=== PATIENT | female | born 1965 | race Caucasian/White ===

== ENCOUNTER 2020-11-13 21:41 | Emergency (ER) | payer BC ==
[~2020-11-13] VITALS: Ht 165.1 cm; Wt 97.5 kg
[2020-11-13 21:50] VITALS: BP 157/80
[2020-11-13] MEDS ORDERED: MAGNESIUM HYDROXIDE 2,400 MG/30 ML ORAL.SUSP. PO ONE (22:00)
[2020-11-13] MEDS ORDERED: ALBUTEROL SULFATE 8GM INHALER. INH ONE (22:00)
[2020-11-13] MEDS ORDERED: methylPREDNISolone SOD SUCC PF 125 MG/2 ML VIAL. IV ONE (22:00)
[2020-11-13] MEDS ORDERED: FAMOTIDINE 20 MG/2 ML VIAL IVP ONE (22:00)
--- NOTE | 2020-11-13 23:01 | PHYS DOC ---
Past History Past Medical History: Asthma, GERD Past Surgical History: Tonsillectomy, Tubal ligation Alcohol Use: Occasionally General Adult EDM: Chief Complaint: ALLERGIC REACTION HPI: HPI: ".. We are visiting from [place]-- my grandson is in unit here... and I ate a Crab cake.. and started itching everywhere... I am red from top to bottom...I am like a boiled lobster..." Patient is a 55 year old female who presents with above hx and apparent allergic reaction to crab cake ingestion. Patient reports she is never eaten crab cakes before. Pt.states symptoms started almost immediately after eating a crab cake. Patient entire body is red. Patient states initially was very itchy however he did take some Benadryl which helped with the symptoms. Patient denies any other new meds, lotions, or exposures. No specific ill contacts. Recent travel from [place]. No history of fever or chills. Does have past medical history of asthma, GERD . Patient is up-to-date with vaccinations. Patient is accompanied with her . Review of Systems: Review of Systems: Constitutional: Denies fever or chills Eyes: Denies change in visual acuity HENT: Denies nasal congestion or sore throat Respiratory: Denies cough or shortness of breath Cardiovascular: Denies chest pain or edema GI: Denies abdominal pain, nausea, vomiting, bloody stools or diarrhea : Denies dysuria Musculoskeletal: Denies back pain or joint pain Integument: Complains of diffuse itchy rash over her entire body Neurologic: Denies headache, focal weakness or sensory changes Endocrine: Denies polyuria or polydipsia Lymphatic: Denies swollen glands Psychiatric: Denies depression or anxiety Family History: Family History: Noncontributory to presentation Current Medications: Current Meds: Current Medications Medications (Trade) Dose Ordered Sig/Peewee Start Time Stop Time Status Last Admin Dose Admin Albuterol Sulfate (Ventolin Hfa Inhaler) 2 puff 1X ONCE 11/13/20 22:00 11/13/20 22:07 DC 11/13/20 22:25 2 PUFF Famotidine (Pepcid Vial) 20 mg 1X ONCE 11/13/20 22:00 11/13/20 22:07 DC 11/13/20 22:19 20 MG Magnesium Hydroxide (Milk Of Magnesia) 2,400 mg 1X ONCE 11/13/20 22:00 11/13/20 22:07 DC 11/13/20 22:23 2,400 MG Methylprednisolone Sodium Succinate (SOLU-Medrol 125MG VIAL) 125 mg 1X ONCE 11/13/20 22:00 11/13/20 22:07 DC 11/13/20 22:21 125 MG Allergies: Allergies: Allergies Coded Allergies Type Severity Reaction Last Updated Verified No Known Drug Allergies 11/13/20 No Physical Exam: PE: Constitutional: in acute distress, non-toxic appearance. [] HENT: Normocephalic, atraumatic, bilateral external ears normal, oropharynx moist, no oral exudates, nose normal. [] Eyes: PERRLA, EOMI, conjunctiva normal, no discharge. [] Neck: Normal range of motion, no tenderness, supple, no stridor. [] Cardiovascular: Tachycardia heart rate regular rhythm, no murmur [] Lungs & Thorax: Bilateral breath sounds equal with few scattered wheezes on auscultation [] Abdomen: Bowel sounds hyperactive, soft, no tenderness, no masses, no pulsatile masses. Old surgery scars Skin: Warm, dry, a rash over the entire body that is very erythemic . Does [place] with pressure. No petechiae Back: No tenderness, no CVA tenderness. [] Extremities: No tenderness, no cyanosis, no clubbing, ROM intact, trace ankle edema. [] Neurologic: Alert and oriented X 3, moves all extremities on request does have distal sensory, no focal deficits noted. [] Psychologic: Affect anxious, judgement normal, mood normal. [] Current Patient Data: Vital Signs: Vital Signs Date Time Temp Pulse Resp B/P (MAP) Pulse Ox O2 Delivery O2 Flow Rate FiO2 11/13/20 21:50 97.8 105 20 157/80 (105) 100 Room Air EKG: EKG: [] Radiology/Procedures: Radiology/Procedures: [] Heart Score: C/O Chest Pain: N/A Risk Factors: Risk Factors: DM, Current or recent (<one month) smoker, HTN, HLP, family history of CAD, obesity. Risk Scores: Score 0 - 3: 2.5% MACE over next 6 weeks - Discharge Home Score 4 - 6: 20.3% MACE over next 6 weeks - Admit for Clinical Observation Score 7 - 10: 72.7% MACE over next 6 weeks - Early Invasive Strategies Course & Med Decision Making: Course & Med Decision Making Pertinent Labs and Imaging studies reviewed. (See chart for details) Patient received Ventolin treatments x2, methylprednisone 125,& Pepcid 20 IV, patient also received 30 cc of milk of mag.. Patient report marked improvement in symptoms. Patient to continue prednisone 50 mg a day, Pepcid 20 mg twice a day, and Ventolin treatments 2 puffs 4 times a day. Patient also continue Benadryl 50 mg up to 4 times a day for itching. Advised patient symptoms may not completely clear right away until offending crab cake is passed in stool. Patient return if any concerns. Patient encouraged to follow-up with primary care. Patient to avoid iodine, crab cakes or other seafoods. Impression: 1. Acute allergic reaction-suspect iodine/seafood allergy (Crab Cake) [] Dragon Disclaimer: Dragon Disclaimer: This electronic medical record was generated, in whole or in part, using a voice recognition dictation system. Departure Departure: Scripts Famotidine (PEPCID) 20 Mg Tablet 20 MG PO BID for allergy for 10 Days, #20 TAB Prov: SPEEDY CHEN MD 11/13/20 Prednisone (PREDNISONE) 50 Mg Tablet 50 MG PO DAILY for allergy for 5 Days, #5 TAB Prov: SPEEDY CHEN MD 11/13/20 Dragon Disclaimer This chart was dictated in whole or in part using Voice Recognition software in a busy, high-work load, and often noisy Emergency Department environment. It may contain unintended and wholly unrecognized errors or omissions. SPEEDY CHEN MD Nov 13, 2020 23:01
[2020-11-13] MEDS ORDERED: PRED50TA PO (23:05)
[2020-11-13] MEDS ORDERED: FAMO-63 PO (23:05)
== END 2020-11-13 23:25 | disposition home or self-care (01) ==
LOC: ER 21:41
DX: T78.49XA Other allergy, initial encounter (principal); J45.909 Unspecified asthma, uncomplicated; K21.9 Gastro-esophageal reflux disease without esophagitis; X58.XXXA Exposure to other specified factors, initial encounter
CPT/HCPCS: 94640; 96374; 96375; 99284; J2930; J3490; 94664